=== PATIENT | female | born 1940 | race Caucasian/White ===

== ENCOUNTER 2020-06-30 10:17 | Emergency (ER) | payer OTHER, MEDICARE | END 2020-06-30 10:27 | disposition home or self-care (01) | LOC: JVIRT 10:17 | DX: Z20.822 Contact with and (suspected) exposure to COVID-19 (principal) | CPT/HCPCS: C9803; G2012-GT; U0003 ==

== ENCOUNTER 2020-07-02 11:14 | Emergency (ER) | payer OTHER, MEDICARE ==
[2020-07-02 11:39] VITALS: BP 177/78; PULSE 85; TEMP 98.5
[2020-07-02 13:01] LABS: BASO % 0.2 % (0-2.0); EOS % 0.6 % (0-4.5); HEMATOCRIT 39.7 % (32.4-45.2); HEMOGLOBIN 13.8 GM/dL (10.7-15.3); LYMPH % 15.1 % (8-40); MCH 30.8 pg (25.7-33.7); MCHC 34.8 g/dl (32.0-36.0); MEAN CELL VOLUME 88.3 fl (80-96); MEAN PLT VOLUME 8.7 fl (7.5-11.1); MONO % 8.8 % (3.8-10.2); NEUT % 75.3 % (42.8-82.8); PLATELET COUNT 240 K/MM3 (134-434); RBC 4.49 M/mm3 (3.60-5.2); RDW 13.2 % (11.6-15.6); WHITE BLOOD COUNT 6.6 K/mm3 (4.0-10.0)
[2020-07-02 13:45] LABS: POTASSIUM 3.6 mmol/L (3.5-5.1)
[2020-07-02 13:49] LABS: CALCIUM 9.2 mg/dL (8.5-10.1)
[2020-07-02 13:50] LABS: BLOOD UREA NITROGEN 14.4 mg/dL (7-18)
[2020-07-02 13:53] LABS: CREATININE 0.5 mg/dL (0.55-1.3)
== END 2020-07-02 15:55 | disposition home or self-care (01) ==
LOC: JER 11:14
DX: Z11.52 Encounter for screening for COVID-19 (principal)
CPT/HCPCS: 36415; 71046-TC-FY; 80048; 85025; 99284-25; C9803; U0003

== ENCOUNTER 2020-07-30 14:42 | Emergency (ER) | payer OTHER, MEDICARE ==
[2020-07-30] MEDS ORDERED: CLINDAMYCIN 600MG PREMIX IVPB 600 MG/50 ML BAG IVPB ONE (15:14)
[2020-07-30 15:25] VITALS: TEMP 99.5; BMI 33.7
[2020-07-30 16:10] LABS: HEMATOCRIT 39.2 % (32.4-45.2); HEMOGLOBIN 12.8 GM/dl (10.7-15.3); MCH 29.2 pg (25.7-33.7); MCHC 32.6 g/dl (32.0-36.0); MEAN CELL VOLUME 89.5 fl (80-96); PLATELET COUNT 289 K/MM3 (134-434); RBC 4.37 M/mm3 (3.60-5.2); RDW 12.4 % (11.6-15.6); WHITE BLOOD COUNT 10.6 K/mm3 (4.0-10.8)
[2020-07-30 16:19] LABS: ALBUMIN 4.4 g/dl (3.4-5.0); BILIRUBIN,TOTAL 0.9 mg/dl (0.2-1); CALCIUM 9.5 mg/dl (8.5-10); CREATININE 0.7 mg/dl (0.55-1.3); POTASSIUM 3.5 mmol/L (3.5-5.1); TOT PROT 6.8 g/dl (6.4-8.2)
[2020-07-30] MEDS ORDERED: DALBAVANCIN HCL 1,500 MG in DEXTROSE 5%-WATER - 500 ML IVPB ONE (16:34)
[2020-07-30] MEDS ORDERED: DALBAVANCIN HCL 500 MG VIAL (RESTRICTED TO ID ONLY) IVPB ONE ×2 (16:40→16:47)
[2020-07-30 17:39] VITALS: BP 110/72; PULSE 72
== END 2020-07-30 17:41 | disposition home or self-care (01) ==
LOC: FER 14:42
PROC: 3E033GC Introduction of Other Therapeutic Substance into Peripheral Vein, Percutaneous Approach (ICD-10-PCS; principal; 2020-07-30)
DX: L03.115 Cellulitis of right lower limb (principal)
CPT/HCPCS: 36415; 73630-TC-RT-FY; 80053; 85027; 85651; 86140; 99284-25; J0875